=== PATIENT | female | born 1965 | race Native Hawaiian/Other Pacific Islander ===

== ENCOUNTER 2018-07-08 16:03 | Emergency (ER) | payer OTHER ==
[~2018-07-08] VITALS: Ht 180.3 cm; Wt 95.3 kg
[~2018-07-08 16:03] MED LIST: ATEN50TA36 PO; FLUO10CA2 PO; XANAX2 MG OR
[2018-07-08 16:14] VITALS: BP 136/77; TEMP 97.5
== END 2018-07-08 18:32 | disposition home or self-care (01) ==
LOC: ED 16:03
DX: S90.32XA Contusion of left foot, initial encounter (principal); W01.198A Fall on same level from slipping, tripping and stumbling with subsequent striking against other object, initial encounter; Y92.89 Other specified places as the place of occurrence of the external cause
CPT/HCPCS: 96372; 99283; J1885

== ENCOUNTER 2019-06-30 11:37 | Emergency (ER) | payer OTHER ==
[~2019-06-30] VITALS: Ht 180.3 cm; Wt 103.0 kg
[2019-06-30 11:43] VITALS: TEMP 98.1
[2019-06-30] MEDS ORDERED: VITAMIN D3 PO (11:55)
[2019-06-30] MEDS ORDERED: CETI10TA PO (11:55)
[2019-06-30 12:43] VITALS: BP 138/81
== END 2019-06-30 12:43 | disposition home or self-care (01) ==
LOC: ED 11:37
DX: K08.89 Other specified disorders of teeth and supporting structures (principal); K04.7 Periapical abscess without sinus
CPT/HCPCS: 96372; 99283; J0696; J1885

== ENCOUNTER 2021-03-12 09:44 | Emergency (ER) | payer OTHER ==
[~2021-03-12 09:44] MED LIST changes: +CETI10TA PO; +VITAMIN D3 PO
== END 2021-03-12 15:10 | disposition home or self-care (01) ==
LOC: ED 09:44
DX: S22.20XA Unspecified fracture of sternum, initial encounter for closed fracture (principal); S20.219A Contusion of unspecified front wall of thorax, initial encounter; W17.89XA Other fall from one level to another, initial encounter; Y92.098 Other place in other non-institutional residence as the place of occurrence of the external cause
CPT/HCPCS: 96372; 99283; J1885